=== PATIENT | female | born 1985 | race Caucasian/White ===

== ENCOUNTER 2016-06-19 16:47 | Emergency (ER) | payer MEDICAID, MEDICARE | END 2016-06-19 19:37 | disposition home or self-care (01) | LOC: FASTR 16:47 | DX: R31.29 Other microscopic hematuria (principal); N20.0 Calculus of kidney; Z79.899 Other long term (current) drug therapy; F17.210 Nicotine dependence, cigarettes, uncomplicated | CPT/HCPCS: 74176; 81001; 81025 ==